=== PATIENT | male | born 1950 | race Caucasian/White ===

== ENCOUNTER → 2024-05-21 09:10 | Outpatient (REF) | payer MEDICARE, SELFPAY | LOC: RCS 09:10 | PROVIDERS: ATTENDING PHYSICIAN Nurse Practitioner; FAMILY PHYSICIAN Internal Medicine | DX: R07.9 Chest pain, unspecified (principal); R06.00 Dyspnea, unspecified | CPT/HCPCS: 93306 ==

== ENCOUNTER → 2024-05-28 06:54 | Outpatient (REF) | payer MEDICARE, SELFPAY ==
[2024-05-28] MEDS: FLUSH (NSS) 1 FLUSH IV (08:58)
[2024-05-28] MEDS: LEXISCAN 0.4 MG IV (08:58)
== END ==
LOC: RCS 06:54
PROVIDERS: ATTENDING PHYSICIAN Nurse Practitioner; FAMILY PHYSICIAN Internal Medicine
DX: R07.9 Chest pain, unspecified (principal); R06.00 Dyspnea, unspecified
CPT/HCPCS: 78452; 93017; A9500; J2785